=== PATIENT | female | born 1995 | race Caucasian/White ===

== ENCOUNTER 2017-09-18 05:46 | Inpatient (IN) | payer BC, OTHER ==
[2017-09-18] MEDS ORDERED: Lactated Ringer's 1,000 ML IV SCH ×2 (06:07→09:15)
[2017-09-18] MEDS ORDERED: Ondansetron HCl/PF 4 MG/2 ML Vial IVP PRN ×4 (06:07→09:03)
[2017-09-18] MEDS ORDERED: Docusate 100 MG CAP PO PRN (06:07)
[2017-09-18] MEDS ORDERED: Promethazine HCl 25 MG/ML VIAL IM PRN ×2 (06:07→08:24)
[2017-09-18 06:24] LABS: Hemoglobin 12.4 g/dL (12.0-16.0); Mean Corpuscular HGB CONC 34.5 g/dL (32.0-36.0); Mean Corpuscular Hemoglobin 27.4 pg (27.0-31.0); Mean Corpuscular Volume 79.3 fl (81.0-99.0); Mean Platelet Volume 8.4 fL (7.4-10.4); Platelet Count 271 thou/uL (130-400); RBC Distribution Width 13.7 % (11.5-14.5); Red Blood Cell (RBC) Count 4.54 mill/uL (4.20-5.40); White Blood Cell (WBC) Count 10.7 thou/uL (4.8-10.8)
[2017-09-18 06:29] VITALS: BMI 39.4
[2017-09-18] MEDS ORDERED: Clindamycin/D5W 900 MG in Premix Bag 1 BAG IVPB SCH (06:30)
[2017-09-18] MEDS ORDERED: Bicitra 30 ML UDCUP PO SCH ×2 (06:45)
[2017-09-18 06:56] LABS: Syphilis Antibody Nonreactive (Nonreactive); Syphilis Antibody Index 0.04 S/CO (<1.00 Non-Reactive)
[2017-09-18 06:57] LABS: HBSAg Index 0.42 S/CO (0-0.99); Hep B Surf Ag Non-Reactive S/CO (NonReactive)
[2017-09-18] MEDS ORDERED: Morphine PF 1 MG/ML SYR ONE (07:04)
[2017-09-18] MEDS ORDERED: Fentanyl 100 MCG/2 ML VIAL ONE (07:04)
[2017-09-18] MEDS ORDERED: ePHEDrine/0.9% NaCl/PF SYRINGE 50 mg/10 ml ONE (07:05)
[2017-09-18] MEDS ORDERED: Oxytocin 10 UNITS/ML VIAL ONE (07:05)
[2017-09-18] MEDS ORDERED: Bupivacaine 0.75% W/DEXTROSE 8.25% 2 ML AMP ONE (07:05)
[2017-09-18] MEDS ORDERED: PHENYLEPHRINE-NS 100 MCG/ML 10 ML SYRINGE ONE ×3 (07:05→19:56)
[2017-09-18] MEDS ORDERED: Dexamethasone 4 mg/ml Vial ONE (07:05)
[2017-09-18] MEDS ORDERED: Ketorolac Tromethamine 30 MG/ML VIAL ONE ×2 (07:05→19:56)
[2017-09-18] MEDS ORDERED: Lidocaine 1% PF 5 ML VIAL ONE (07:25)
[2017-09-18] MEDS ORDERED: diphenhydrAMINE 50 MG/ML VIAL IVP PRN (08:24)
[2017-09-18] MEDS ORDERED: Meperidine HCl/PF 25 MG/ML VIAL SLOW IVP PRN (08:24)
[2017-09-18] MEDS ORDERED: Naloxone HCl 0.4 mg/ml Vial IV PRN (08:24)
[2017-09-18] MEDS ORDERED: Naloxone HCl 0.4 mg/ml Vial IVP PRN ×2 (08:24)
[2017-09-18] MEDS ORDERED: Ketorolac Tromethamine 30 MG/ML VIAL IVP PRN ×2 (08:24→13:23)
[2017-09-18] MEDS ORDERED: Eucerin (Mineral Oil/Petrolatum,White) 30 gm Jar TOP PRN (08:24)
[2017-09-18] MEDS ORDERED: Promethazine HCl 25 MG SUPP PR PRN (08:24)
[2017-09-18] MEDS ORDERED: HYDROmorphone 2 MG/ML VIAL SLOW IVP PRN (08:24)
[2017-09-18] MEDS ORDERED: Ketorolac Tromethamine 30 MG/ML VIAL IVP SCH (08:30)
[2017-09-18] MEDS ORDERED: Communication Order-Pharmacy FS SCH (08:30)
[2017-09-18] MEDS ORDERED: Adacel (T-DAP) 0.5 ML VIAL IM ONE (09:03)
[2017-09-18] MEDS ORDERED: Lanolin Ointment 7 GM TUBE TOP PRN (09:03)
[2017-09-18] MEDS ORDERED: Zolpidem Tartrate 5 MG TAB PO PRN (09:03)
[2017-09-18] MEDS ORDERED: Bisacodyl 10 MG SUPP PR PRN (09:03)
[2017-09-18] MEDS ORDERED: Acetaminophen 325 MG TAB PO PRN (09:03)
[2017-09-18] MEDS ORDERED: diphenhydrAMINE 25 MG CAP PO PRN (09:03)
[2017-09-18] MEDS ORDERED: LR w/ Pitocin 40 units/1000 ML BAG IV SCH (09:15)
[2017-09-18] MEDS ORDERED: LR / Pitocin 40 units/1000 ml 1,000 ML IV SCH (10:00)
[2017-09-18] MEDS ORDERED: diphenhydrAMINE 50 MG/ML VIAL ONE (10:09)
[2017-09-18] MEDS: Ferrous Sulfate 325 MG TAB PO SCH (17:53)
[2017-09-18] MEDS ORDERED: Acetaminophen/Codeine 30-300mg Tablet PO PRN (20:30)
[2017-09-18] MEDS ORDERED: Meperidine HCl/PF 25 MG/ML VIAL IM PRN (20:30)
[2017-09-18] MEDS: Docusate Calcium (SURFAK) 240 MG CAP PO SCH (21:31)
[2017-09-18] MEDS: Simethicone Chewable 80 MG TAB PO PRN (22:04)
[2017-09-19] MEDS: Acetaminophen/Codeine 30-300mg Tablet PO PRN ×5 (00:22→19:53)
[2017-09-19] MEDS: Simethicone Chewable 80 MG TAB PO PRN ×3 (04:23→19:53)
[2017-09-19 05:46] LABS: Hemoglobin 10.1 g/dL (12.0-16.0); Mean Corpuscular Hemoglobin 26.6 pg (27.0-31.0); Mean Corpuscular Volume 80.5 fl (81.0-99.0); Mean Platelet Volume 8.1 fL (7.4-10.4); Platelet Count 219 thou/uL (130-400); RBC Distribution Width 13.6 % (11.5-14.5); White Blood Cell (WBC) Count 13.5 thou/uL (4.8-10.8)
[2017-09-19] MEDS: Ferrous Sulfate 325 MG TAB PO SCH ×2 (07:39→17:39)
[2017-09-19] MEDS: Docusate Calcium (SURFAK) 240 MG CAP PO SCH ×2 (09:23→19:53)
[2017-09-19] MEDS: Prenatal Vitamin 1 TAB PO SCH (09:23)
[2017-09-19] MEDS: Ibuprofen 800 MG TAB PO SCH ×2 (11:37→21:12)
[2017-09-20] MEDS: Simethicone Chewable 80 MG TAB PO PRN (05:47)
[2017-09-20] MEDS: Ibuprofen 800 MG TAB PO SCH ×2 (05:47→14:33)
[2017-09-20 08:03] VITALS: BP 96/52; TEMP 98.4
[2017-09-20] MEDS: Ferrous Sulfate 325 MG TAB PO SCH (09:05)
[2017-09-20] MEDS: Prenatal Vitamin 1 TAB PO SCH (09:06)
[2017-09-20] MEDS: Docusate Calcium (SURFAK) 240 MG CAP PO SCH (09:06)
[2017-09-20] MEDS: Acetaminophen/Codeine 30-300mg Tablet PO PRN ×2 (09:08→15:00)
--- NOTE | 2017-09-20 17:09 | OP ---
DATE OF PROCEDURE: 09/18/2017 ATTENDING STAFF PHYSICIAN: Law Coleman M.D. SURGEON: Law Coleman M.D. GAS FITTER SURGEON: Loren Brink M.D. PREOPERATIVE DIAGNOSES: 1. Term intrauterine at 39 weeks. 2. Prior section. 3. Declines trial of labor. POSTOPERATIVE DIAGNOSES: 1. Term intrauterine at 39 weeks. 2. Prior section. 3. Declines trial of labor. PROCEDURE: Repeat low transverse section. ANESTHESIA: Spinal catheterization. FINDINGS: 1. Vigorous male , 8 pounds 3 ounces, Apgars 8 and 9. 2. Normal uterus, tubes, and ovaries. 3. Minimal scarring adhesions secondary to previous adhesion prevention measures. COMPLICATIONS: None. SPECIMENS REMOVED: Cord blood. ESTIMATED BLOOD LOSS: 500 mL. PROCEDURE IN DETAIL: After thorough consent and counseling, Ms. Antonio was taken to the operating elda m and adequate level of anesthesia was obtained via spinal catheterization. The patient was prepped and draped in the usual sterile fashion for abdominal surgery. A Gomez was placed in the bladder, wh ich was drained of clear urine. Attention was then turned to performing the repeat low transverse ce sarean section. A Pfannenstiel incision was made and carried sharply to the fascia, which was also sharply incised. Midline was identified and the rectus muscles were retracted laterally. The abdominal peritoneal cav ity was entered with usual safeguards carried out. A retractor was placed and a bladder flap was cre ated on the vesicouterine peritoneum. A low transverse incision was made on the well-developed lower uterine segment. Upon entering the amniotic sac, copious amount of clear amniotic fluid was visuali zed. The infant was noted to be vertex presentation in the occiput anterior position. Head was deli alice and baby was bulb suctioned on the abdomen with the assistance of a vacuum extractor. Baby was suctioned on the abdomen. Shoulders and body were then delivered in an atraumatic fashion. Cord wa s doubly clamped and cut. The infant was handed to the Neonatology Team in attendance for the parag dominguez. The was a vigorous viable male, weighing 8 pounds 3 ounces with Apgars of 8 and 9 obtaine d at 1 and 5 minutes respectively. Cord blood was obtained. The placenta was manually removed from the uterus. The uterus was exteriorized and good tone was noted. The uterine cavity was cleared of any remaining clot and fluid. The low transverse incision on the uterus was then closed with a runni ng locking ligature of #1 chromic. A second imbricating layer was placed to facilitate strength and hemostasis. The vesicouterine peritoneum was reapproximated to the lower uterine segment with a runn ing ligature of 3-0 Monocryl. Good hemostasis was noted. The posterior cul-de-sac gutters were then cleared of clot and fluid. The uterus, fallopian tubes and ovaries were inspected and noted to be n ormal with no pathology identified. Seprafilm was then applied to the low transverse incision and to the anterior aspect of the uterus for adhesion prevention. The uterus was returned to the abdomen. The incision was carefully inspected and noted to be hemostatic. Lap, sponge and needle counts were correct. The peritoneum was then closed with a running ligature of 2-0 Vicryl. The rectus muscles w ere reapproximated in the midline with interrupted ligatures of 2-0 Vicryl and #1 chromic. The fasci a was then closed with 2 ligatures of 0 Vicryl suture, which were tied in the midline. Good fascial integrity was appreciated. The incision was irrigated with copious amount of warm normal saline. Th e subcutaneous tissue was then closed with interrupted ligatures of 2-0 plain. The skin was closed w ith a subcuticular stitch of 4-0 Monocryl. A pressure dressing and ice packs were subsequently place d. Lap, sponge, and needle counts were correct x3. Estimated blood loss during the surgical procedu re was approximately 500 mL. The patient was taken to recovery room in good condition. Immediately following surgery, the patient and family were made aware of the surgical procedure and operative findings. Questions were answere d to their satisfaction.
== END 2017-09-20 15:05 | disposition home or self-care (01) | DRG 766 ==
LOC: L&D 05:46 → 3SW 11:52 → 3SE 09-19 18:14
PROVIDERS: ADMIT Obstetrics & Gynecology; ATTEND Obstetrics & Gynecology
PROC: 10D00Z1 Extraction of Products of Conception, Low, Open Approach (ICD-10-PCS; principal; 2017-09-20)
DX: O34.211 Maternal care for low transverse scar from previous cesarean delivery (principal); Z37.0 Single live birth; Z3A.39 39 weeks gestation of pregnancy; Z88.0 Allergy status to penicillin; Z79.899 Other long term (current) drug therapy; O24.425 Gestational diabetes mellitus in childbirth, controlled by oral hypoglycemic drugs; O69.81X0 Labor and delivery complicated by cord around neck, without compression, not applicable or unspecified
CPT/HCPCS: 36415; 51702; 85027; 86780; 86850; 86900; 86901; 87340; J1100; J1200; J1885; J2001; J2274; J2590; J3010; J3490

== ENCOUNTER 2017-09-28 12:22 | Emergency (ER) | payer BC, OTHER ==
--- NOTE | 2017-09-28 14:50 | ULT ---
VENOUS DOPPLER ULTRASOUND OF THE LEFT LOWER EXTREMITY: HISTORY: Left leg edema. TECHNIQUE: Peña scale ultrasound with color flow and spectral Doppler imaging of the deep venous system of the l eft lower extremity is performed. FINDINGS: There is good flow, compression, and augmentation noted in the common femoral, femoral, deep femoral, popliteal, posterior tibial, and greater saphenous veins of the left lower extremity. IMPRESSION: No evidence of deep vein thrombosis in the left lower extremity. POS: [facility]
--- NOTE | 2017-09-28 15:21 | CT ---
CT BRAIN WITHOUT CONTRAST: HISTORY: Facial drooping. Left lower extremity swelling. DATE: 09/28/17. COMPARISON: Comparison is made to a previous exam from 04/30/10. FINDINGS: Noncontrast-enhanced CT images of the brain are obtained. The brain is unremarkable. No evidence of intracranial masses, hemorrhages, strokes, or contusions seen. Ventricles are of normal size. IMPRESSION: Normal CT brain. POS: [facility]
== END 2017-09-28 16:08 | disposition home or self-care (01) ==
LOC: ERS 12:22
DX: O99.355 Diseases of the nervous system complicating the puerperium (principal); G51.0 Bell's palsy
CPT/HCPCS: 70450